=== PATIENT | male | born 2000 | race Two or more races ===

== ENCOUNTER 2019-10-07 22:35 | Emergency (ER) | payer OTHER ==
[2019-10-07] MEDS ORDERED: Acetaminophen/HYDROcodone 325-5 MG Tab PO ONE (23:02)
[2019-10-07] MEDS ORDERED: Diphtheria,Pertussis(Acell),Tetanus Vaccine 0.5 ML Syringe IM ONE (23:02)
--- NOTE | 2019-10-07 23:04 | EDM.PDOC ---
ED HPI GENERAL MEDICAL PROBLEM - General Chief Complaint: Burn Stated Complaint: BURN ON LEFT WRIST Time Seen by Provider: 10/07/19 22:46 Source of Information: Reports: Patient, Family (Aunt) History Limitations: Reports: Language Barrier (Aunt acted as cigar tobacco rehandler) - History of Present Illness INITIAL COMMENTS - FREE TEXT/NARRATIVE: Mr. Herrera is a very pleasant 18-year-old man with no chronic medical problems and no past surgical history, who is now brought to the ED after burning his left wrist at work around 19:00 tonight. He apparently disconnected a hose on a pump, and the hose contained hot water, which spilled on the volar aspect of his left wrist, as well as a tiny amount on his thenar eminence. He is otherwise uninjured. The patient states that no treatment was given to his injury prior to coming to the ED. Here in the ED, the patient's initial BP is found to be elevated at 144/73, otherwise, he is hemodynamically stable, afebrile, saturating 100% on room air. Other than his wrist injury, the patient denies recent fever, chills, sore throat, ear pain, nasal or sinus congestion, cough, dyspnea, chest pain, palpitations, nausea, vomiting, constipation, diarrhea, abdominal pain, urinary symptoms, recent weight gain or weight loss, recent bloody bowel movements or black bowel movements, recent joint aches, headaches, or rashes. The patient does not recall when his last tetanus vaccination was. He agreed to receive one here in the ED tonight. The patient does not have a PCP. Treatments [employer] DEVELOPER: Reports: Other (see below) Other Treatments [employer] DEVELOPER: none Left Wrist Pain Score (Numeric/FACES): 5 - Related Data Allergies Allergy/AdvReac Type Severity Reaction Status Date / Time No Known Allergies Allergy Verified 10/07/19 22:52 Home Meds: Home Meds . [No Known Home Meds] 10/07/19 [History] Past Medical History - Past Health History Medical/Surgical History: Denies Medical/Surgical History Social & Family History - Tobacco Use Smoking Status *Q: Never Smoker - Caffeine Use Caffeine Use: Reports: Coffee, Soda - Alcohol Use Alcohol Use History: Yes Alcohol Use Frequency: Socially - Recreational Drug Use Recreational Drug Use: No - Living Situation & Occupation Living situation: Reports: Single, Alone Occupation: Employed (Police Manager) ED ROS GENERAL - Review of Systems Review Of Systems: Comprehensive ROS is negative, except as noted in HPI. ED EXAM, BURN/SMOKE INHALATION - Physical Exam Exam: See Below Exam Limited By: No Limitations General Appearance: Alert, WD/WN, No Apparent Distress Extremities: Other (There are 2 popped blisters over the volar aspect of the patient's distal radius, one measuring 1.5 x 2 cm, the other 1.5 x 3 cm. There is an additional tiny satellite blister that has not popped, and 2 very small blisters that have not popped over the thenar eminence. No other visible injuries. Neurovascular status of the left upper extremity is intact. TBSA <1%.) Course - Vital Signs Last Recorded V/S: Last Vital Signs Temp 36.6 C 10/07/19 22:55 Pulse 73 10/07/19 22:55 Resp 20 10/07/19 22:55 BP 144/73 H 10/07/19 22:55 Pulse Ox 100 10/07/19 22:55 - Orders/Labs/Meds Orders: Active Orders 24 hr Category Date Time Status Vaccines to be Administered [RC] PER UNIT ROUTINE Care 10/07/19 23:02 Active Meds: Medications Discontinued Medications Generic Name Dose Route Start Last Admin Trade Name Shanna PRN Reason Stop Dose Admin Hydrocodone Bitart/Acetaminophen 2 tab 10/07/19 23:02 10/07/19 23:26 [place] 325-5 Mg PO 10/07/19 23:03 2 tab ONETIME ONE Administration Diphtheria/Tetanus/Acell Pertussis 0.5 ml 10/07/19 23:02 Adacel IM 10/07/19 23:03 .ONCE ONE - Re-Assessments/Exams Free Text/Narrative Re-Assessment/Exam: 10/07/19 23:03 As above, the patient has 2 popped blisters on the volar aspect of his left wrist. I will trim the tissue away. In the meantime, the patient will be given 2 tablets of [place]. 10/07/19 23:16 I trimmed the skin from around the 2 popped wrist blisters. Ama HOANG will then wash the wounds, pat them dry, apply an antibiotic ointment, followed by a nonstick dressing. Management of the wounds and dressings was discussed in detail. The patient will be given a tetanus vaccination prior to discharge home. He may take [id number] ibuprofen as needed for discomfort. Departure - Departure Time of Disposition: 23:18 Disposition: Home, Self-Care 01 Condition: Good Clinical Impression: Second degree burn of left wrist - Discharge Information *PRESCRIPTION DRUG MONITORING PROGRAM REVIEWED*: Not Applicable *COPY OF PRESCRIPTION DRUG MONITORING REPORT IN PATIENT JOSE GUADALUPE: Not Applicable Instructions: Burn Care, Adult, [id number], Second-Degree Burn, Adult Referrals: PCP,None [Primary Care Provider] - Forms: ED Department Discharge Additional Instructions: You were seen in the emergency room after hot water burned your left wrist at work. skin was trimmed from the 2 popped blisters on your left wrist. Keep the wounds clean with ordinary soap and water when you bathe. Pat dry, then apply a thin smear of bacitracin antibiotic ointment (available [id number]) before applying a nonstick dressing, once a day. Do not allow the dressing to get wet or dirty. Change immediately if it does. Take [id number] ibuprofen as needed for discomfort. If cared for as above, the wounds should not get infected, however, if there are any concerns of infection, such as swelling, increased redness, inordinate pain, or drainage, please do not hesitate to return to the ER for reevaluation. *You were given a tetanus vaccination during your ER visit.* Sepsis Event Note (ED) - Evaluation Sepsis Screening Result: No Definite Risk - Focused Exam Vital Signs: Vital Signs Temp Pulse Resp BP Pulse Ox 10/07/19 22:55 36.6 C 73 20 144/73 H 100 - My Orders Last 24 Hours: My Active Orders 10/07/19 23:02 Vaccines to be Administered [RC] PER UNIT ROUTINE - Assessment/Plan Last 24 Hours: My Active Orders 10/07/19 23:02 Vaccines to be Administered [RC] PER UNIT ROUTINE
== END 2019-10-07 23:32 | disposition home or self-care (01) ==
LOC: JD.ED 22:35
DX: T23.272A Burn of second degree of left wrist, initial encounter (principal); T31.0 Burns involving less than 10% of body surface; Z23 Encounter for immunization; X11.8XXA Contact with other hot tap-water, initial encounter; Y99.0 Civilian activity done for income or pay
CPT/HCPCS: 90471; 90715; 99283; A9270